=== PATIENT | female | born 1945 | race Caucasian/White ===

== ENCOUNTER 2017-04-19 14:52 | Emergency (ER) | payer MEDICARE, OTHER ==
[~2017-04-19] VITALS: Ht 154.9 cm; Wt 47.2 kg
--- NOTE | 2017-04-19 14:54 | PHYS DOC ---
Adult General Chief Complaint Chief Complaint: HIP PAIN HPI HPI Patient is a 72 year old female who presents with pain. The patient missed her step and fell on her right nontoxic and had instant pain. She states she heard something snap he is afraid she broke her hip. EMS gave her 100 mics of fentanyl in route. She denies any pain in her back, neck or left hip or knees. Patient denies any past medical history or having a primary care physician. She smokes half pack per day for the last 50 years. Review of Systems Review of Systems Constitutional: Denies fever or chills [] Eyes: Denies change in visual acuity, redness, or eye pain [] HENT: Denies nasal congestion or sore throat [] Respiratory: Denies cough or shortness of breath [] Cardiovascular: No additional information not addressed in HPI [] GI: Denies abdominal pain, nausea, vomiting, bloody stools or diarrhea [] : Denies dysuria or hematuria [] Musculoskeletal: Denies back pain or joint pain [] Integument: Denies rash or skin lesions [] Neurologic: Denies headache, focal weakness or sensory changes [] Endocrine: Denies polyuria or polydipsia [] Physical Exam Physical Exam Constitutional: Well developed, well nourished, no acute distress, non-toxic appearance. [] HENT: Normocephalic, atraumatic, bilateral external ears normal, oropharynx moist, no oral exudates, nose normal. [] Eyes: PERRLA, EOMI, conjunctiva normal, no discharge. [] Neck: Normal range of motion, no tenderness, supple, no stridor. [] Cardiovascular:Heart rate regular rhythm, no murmur [] Lungs & Thorax: Bilateral breath sounds clear to auscultation [] Abdomen: Bowel sounds normal, soft, no tenderness, no masses, no pulsatile masses. [] Skin: Warm, dry, no erythema, no rash. [] Back: No tenderness, no CVA tenderness. [] Extremities: Tender to palpation over the right hip, no cyanosis, no clubbing, ROM intact, no edema. Dorsal pedis pulse of right lower extremities 2+, sensation intact to light touch, able to flex and extend toes and anklewithout any discomfort. Neurologic: Alert and oriented X 3, normal motor function, normal sensory function, no focal deficits noted. [] Psychologic: Affect normal, judgement normal, mood normal. [] EKG EKG [] Radiology/Procedures Radiology/[place] [address] IMAGING REPORT Signed PATIENT: TERRANCE CARIAS ACCOUNT: [id number] : 1945 LOCATION: ER AGE: 72 SEX: F EXAM STATUS: REG ER ORD. PHYSICIAN: OSIRIS DRIVER MD REASON: fall with pain PROCEDURE: HIP RIGHT 2V WITH PELVIS Indication fall. A single view of the pelvis was obtained as well as AP and lateral views of the right hip. There is an acute, traumatic, minimally distracted right intertrochanteric hip fracture. No additional bony finding is seen. IMPRESSION: Fractured right hip DICTATED AND SIGNED BY: JUDY PATEL MD DATE: 04/19/171607 CC: OSIRIS DRIVER MD; PCP,NO ~ [address] [address] IMAGING REPORT Signed PATIENT: TERRANCE CARIAS ACCOUNT: [id number] : 1945 LOCATION: ER AGE: 72 SEX: F EXAM STATUS: REG ER ORD. PHYSICIAN: OSIRIS DRIVER MD REASON: fall with pain PROCEDURE: HIP RIGHT 2V WITH PELVIS Indication fall. A single view of the pelvis was obtained as well as AP and lateral views of the right hip. There is an acute, traumatic, minimally distracted right intertrochanteric hip fracture. No additional bony finding is seen. IMPRESSION: Fractured right hip DICTATED AND SIGNED BY: JUDY PATEL MD DATE: 04/19/171607 CC: OSIRIS DRIVER MD; PCP,NO ~ Impressions: Right intertrochanteric hip fracture Tobacco abuse Course & Med Decision Making Course & Med Decision Making Pertinent Labs and Imaging studies reviewed. (See chart for details) Patient is a right intertrochanteric fracture. She is neurovascularly intact. Patient's being transferred to [place] [facility] with Ortho consultation. Patient is in stable and agreeable condition this time. Patient's being checked out to Dr. Rivera who will speak with Dr. Nielsen and the hospitalist accepted the patient. The CD and reports been printed off. Patient resting comfortably, vital signs stable on the monitor at time of my arrival in emergency department. Patient awaiting transfer to [facility]. Transfer paperwork has been completed, I did speak with Dr. Nielsen of orthopedics, regarding the patient's intertrochanteric fracture, who will see the patient in consultation, and with Dr. Morataya of internal medicine, patient's laboratory studies imaging were reviewed, including the chest x-ray findings and hip findings. Patient accepted to her service as a full admission, transfer arranged via EMS for transport to [facility]. Dragon Disclaimer Dragon Disclaimer This chart was dictated in whole or in part using Voice Recognition software in a busy, high-work load, and often noisy Emergency Department environment. It may contain unintended and wholly unrecognized errors or omissions. Departure Departure: Impression: Primary Impression: Hip fracture, right Disposition: 02 XFER SHT-TRM HOSP Condition: STABLE Problem Qualifiers Primary Impression: Hip fracture, right Encounter type: initial encounter Fracture type: closed Qualified Codes: S72.001A - Fracture of unspecified part of neck of right femur, initial encounter for closed fracture OSIRIS DRIVER MD Apr 19, 2017 14:54 SUZIE RIVERA DO Apr 19, 2017 18:17
[2017-04-19 14:56] VITALS: BP 119/65
--- NOTE | 2017-04-19 16:09 | RAD ---
Indication fracture right hip. Anticipated surgical repair. A single view of the chest was obtained and is compared to the most recent examination available 09/05/2004. The heart and pulmonary vessels are within normal limits. There is a patchy opacity in the right upper lobe. While this could reflect chronic scarring pneumonia is not excluded. Clinical correlation as to this possibility advised. A focal process in the left lung is not seen. There is no significant pleural fluid. There is no pneumothorax. IMPRESSION:: Patchy opacity in the right upper lobe could reflect chronic changes of fibrosis. Pneumonia is not excluded.
--- NOTE | 2017-04-19 16:11 | RAD ---
Indication fall. A single view of the pelvis was obtained as well as AP and lateral views of the right hip. There is an acute, traumatic, minimally distracted right intertrochanteric hip fracture. No additional bony finding is seen. IMPRESSION: Fractured right hip
[2017-04-19 16:53] LABS: BASO # 0.1 x10^3/uL (0.0-0.2); BASO % 1 % (0-3); EOS # 0.1 x10^3/uL (0.0-0.7); EOS % 1 % (0-3); HEMOGLOBIN 13.7 g/dL (12.0-15.5); LYMPH % 19 % (24-48); MEAN CORPUSCULAR HEMOGLOBIN 32 pg (25-35); MEAN CORPUSCULAR HGB CONC 34 g/dL (31-37); MEAN CORPUSCULAR VOLUME 95 fL (79-100); MONO # 0.8 x10^3/uL (0.0-1.1); MONO % 7 % (0-9); NEUT # 7.8 x10^3uL (1.8-7.7); NEUT % 73 % (31-73); PLATELET COUNT 184 x10^3/uL (140-400); RED BLOOD COUNT 4.22 x10^6/uL (3.50-5.40); RED CELL DISTRIBUTION WIDTH 14.5 % (11.5-14.5); WHITE BLOOD COUNT 10.7 x10^3/uL (4.0-11.0)
[2017-04-19] MEDS ORDERED: MORPHINE SULFATE 2 MG/ML DISP.SYRIN. ONE ×3 (17:00→19:37)
[2017-04-19 17:01] LABS: ALBUMIN 3.7 g/dL (3.4-5.0); ALBUMIN/GLOBULIN RATIO 1.2 (1.0-1.7); CALCIUM 8.7 mg/dL (8.5-10.1); CREATININE 0.7 mg/dL (0.6-1.0); GFR 82.5; POTASSIUM 3.9 mmol/L (3.5-5.1); TOTAL BILIRUBIN 0.4 mg/dL (0.2-1.0); TOTAL PROTEIN 6.9 g/dL (6.4-8.2)
[2017-04-19] MEDS: MORPHINE SULFATE 2 MG/ML DISP.SYRIN. IV/SQ PRN ×2 (18:05→19:39)
== END 2017-04-19 21:10 | disposition short-term general hospital (02) ==
LOC: ER 14:52
DX: S72.091A Other fracture of head and neck of right femur, initial encounter for closed fracture (principal); W10.8XXA Fall (on) (from) other stairs and steps, initial encounter; Y93.89 Activity, other specified; Y99.8 Other external cause status; Y92.89 Other specified places as the place of occurrence of the external cause
CPT/HCPCS: 36415; 71010; 73502; 80053; 85025; 85610; 85730; 96374; 96376; 99285; J2270